=== PATIENT | male | born 1990 ===

== ENCOUNTER 2021-02-23 16:19 | Emergency (ER) | payer BC, SELFPAY ==
--- NOTE | ~2021-02-23 | CT_ITS ---
EXAMINATION: CT brain wo con DATE: 02/23/2021 19:59 INDICATION: Left facial paralysis. Weakness. TECHNIQUE: Computed tomography (CT) of the head was performed without intravenous contrast. The mA wa s adjusted according to patient size. Iterative reconstruction technique was employed. Exam dose: 60 5.33 mGy-cm total exam DLP. COMPARISON: None FINDINGS: No intracranial mass lesion or hemorrhage or cerebrovascular accident, midline shift or mas s effect effect is detected. Normal duff-white matter differentiation. Normal ventricular size. No sánchez bdural or epidural hematoma. Orbital contents are unremarkable. There is minimal soft tissue thickening or fluid in the posterior dependent left sphenoid sinus. The paranasal sinuses and mastoid air cells are otherwise unremarkable. No fracture or bone destruction of the cranial vault. IMPRESSION: No intracranial abnormality Reviewed, dictated and finalized at [facility] Reviewed, dictated and finalized at [facility]ANDER IMPRESSION: No intracranial abnormality
[2021-02-23 16:25] VITALS: BP 147/89; PULSE 87; RESP 18; TEMP 36.2; O2SAT 97
[2021-02-23 18:29] VITALS: BP 139/76; PULSE 86; RESP 18; TEMP 36.5; O2SAT 99
--- NOTE | 2021-02-23 19:15 | ED.NEUROSD ---
HPI - Neuro Symptoms/Deficit General Chief Complaint: Neuro Symptoms/Deficit Stated Complaint: L facial paralysis since 02/22/21 ~1400 Time Seen by Provider: 02/23/21 19:11 Source: RN notes reviewed History of Present Illness HPI Narrative: Patient presents emergency department from home for left-sided facial weakness. Patient states he began to notice symptoms approximately 2 PM yesterday. States that he noticed that he was having difficulty closing his left eye as well as drooping of his left side of his face he states he notes he is having trouble with eating and drinking as well he denies any numbness or weakness of any of the extremities denies any vision changes, fever chest pain shortness of breath or any other symptoms. Patient states that he has not noted any difficulty with speaking denies any headache Related Data Home Medications Medication Instructions Recorded Confirmed emtricitabine 200 mg-tenofovir 1 tablet PO DAILY 01/23/19 07/25/19 disoproxil fumarate 300 mg tablet fexofenadine 60 mg-pseudoephedrine 1 tablet PO Q12H PRN 01/23/19 07/25/19 ER 120 mg tablet,ext.release,12 hr fluticasone propionate 50 2 spray NASAL DAILY 01/23/19 07/25/19 mcg/actuation nasal spray,suspension hyoscyamine sulfate 0.125 mg 0.125 mg SUBLINGUAL QID 01/23/19 07/25/19 sublingual tablet Allergies Allergy/AdvReac Type Severity Reaction Status Date / Time No Known Allergies Allergy Verified 02/23/21 19:07 Review of Systems Review of Systems: Gen.: Denies fevers or chills Eyes: Denies eye pain or visual change ENT: Denies congestion Respiratory: Denies shortness of breath or cough CV: Denies chest pain or palpitations GI: Denies abdominal pain nausea, emesis or diarrhea Musculoskeletal: Denies back pain or muscle pain Neuro: See HPI Skin: Denies rash Except as documented, all other systems reviewed and negative PMFSH Past Medical History Medical History (Updated 02/23/21 @ 20:14 by Rohith Victoria DO) Anxiety and depression Social History Social History Smoking status: Never smoker Alcohol intake: never Substance use type: marijuana Gender identity (if verbalized by the patient): Male Exam Narrative: APPEARANCE: No acute distress, nontoxic, resting in bed HEENT: Normocephalic, atraumatic, OMM, TMs clear bilaterally EYES: PERRL, EOMI NECK: Supple, nontender, full range of motion without pain, no meningismus RESPIRATORY: No respiratory distress, clear to auscultation bilaterally with no rhonchi wheezing or rales CARDIOVASCULAR: RRR s murmur ABDOMINAL: Soft, nontender, nondistended MUSCULOSKELETAL: Moves all extremities. No clubbing, cyanosis or edema. NEURO: A and O ?3, following commands, speech normal, unable to fully close left eye, left facial droop, unable to wrinkle forehead or raise eyebrow on left side,muscle strength 5 out of 5 bilateral upper and lower extremities SKIN:: Warm, dry. Normal Color PSYCHIATRIC: Normal affect/mood Course Course Emergency Course: Discussed with patient results of workup and diagnosis. Discussed need for follow-up with primary care, proper use of medication, and reasons to return to the emergency department. Patient understands and agrees to current treatment plan Vital Signs Vital signs: Vital Signs Temperature 97.1 F L 02/23/21 16:25 Pulse Rate 87 02/23/21 16:25 Respiratory Rate 18 02/23/21 16:25 Blood Pressure 147/89 H 02/23/21 16:25 Pulse Oximetry 97 02/23/21 16:25 Temperature 97.7 F 02/23/21 18:29 Pulse Rate 86 02/23/21 18:29 Respiratory Rate 18 02/23/21 18:29 Blood Pressure 139/76 02/23/21 18:29 Pulse Oximetry 99 02/23/21 18:29 MDM - Neuro Symptoms/Deficit MDM Narrative Medical decision making narrative: Patient with left-sided facial droop inability close eye unable to wrinkle forehead on left CT head negative no unilateral deficits of arms or legs feel th
[2021-02-23] MEDS: predniSONE 20 MG TABLET 60 MG PO (20:53)
[2021-02-23] MEDS: valACYclovir HCL 500 MG TABLET 1000 MG PO (20:53)
== END 2021-02-23 21:10 | disposition home or self-care (01) ==
PROVIDERS: Emergency Provider Emergency Medicine
DX: G51.0 Bell's palsy (principal); F41.8 Other specified anxiety disorders; F12.90 Cannabis use, unspecified, uncomplicated
CPT/HCPCS: 70450; 99284; A9270; J7512